=== PATIENT | female | born 1955 | race Two or more races ===

== ENCOUNTER 2016-05-06 20:50 | Inpatient (IN) | payer OTHER ==
[~2016-05-06 20:50] MED LIST: "\\\"BP MED\\\""; HYDR1TAB4 PO; INSU3INS6 SUBCUT; LORA1TAB82 PO
[2016-05-06] MEDS ORDERED: IV NS 0.9% 1,000 ML ONE (22:16)
[2016-05-06] MEDS ORDERED: IV SET PRIMARY 1 EA INFUS.SET MC ONE (22:16)
[2016-05-06] MEDS ORDERED: ACETAMINOPHEN ES 500 MG TABLET ONE (22:16)
[2016-05-06] MEDS ORDERED: LORAZEPAM 1 MG TABLET ONE (22:16)
[2016-05-06] MEDS ORDERED: LORAZEPAM 1 MG TABLET PO ONE (22:30)
[2016-05-06] MEDS ORDERED: ACETAMINOPHEN ES 500 MG TABLET PO ONE (22:30)
[2016-05-06] MEDS ORDERED: IV NS 0.9% 1,000 ML BAG IV ONE (22:30)
[2016-05-06] MEDS ORDERED: CIPROFLOXACIN IV RTU 200 ML IV ONE (23:57)
[2016-05-06] MEDS ORDERED: IV SET PRIMARY PUMP SET 1 EA INFUS.SET MC ONE (23:57)
[2016-05-07] MEDS ORDERED: ONDANSETRON HCL/PF 4 MG/2 ML VIAL ONE (00:05)
[2016-05-07] MEDS ORDERED: MORPHINE SULFATE INJ 4 MG/ML DISP.SYRIN ONE ×2 (00:05→03:10)
[2016-05-07] MEDS ORDERED: ONDANSETRON HCL/PF 4 MG/2 ML VIAL IV ONE (00:30)
[2016-05-07] MEDS ORDERED: MORPHINE SULFATE INJ 2 MG/ML DISP.SYRIN IV ONE (00:30)
[2016-05-07] MEDS ORDERED: METRONIDAZOLE 500MG/ NS 100ML 500 MG in PREMIX 1 EA IV SCH (02:00)
[2016-05-07] MEDS ORDERED: CIPROFLOXACIN IV RTU 400 MG in PREMIX 1 EA IV SCH ×3 (02:00)
[2016-05-07] MEDS ORDERED: IV NS 0.9% 1,000 ML BAG IV ONE (02:30)
[2016-05-07] MEDS ORDERED: ONDANSETRON HCL/PF 4 MG/2 ML VIAL IVP PRN (02:30)
[2016-05-07] MEDS ORDERED: DEXTROSE 50%-WATER 50 ML DISP.SYRIN IV PRN (02:30)
[2016-05-07] MEDS ORDERED: ACETAMINOPHEN 325 MG TABLET PO PRN (02:30)
[2016-05-07] MEDS ORDERED: MISCELLANEOUS MED 1 EA EA XX ONE ×2 (03:30)
[2016-05-07] MEDS ORDERED: MORPHINE SULFATE INJ 2 MG/ML DISP.SYRIN ONE (04:45)
[2016-05-07] MEDS ORDERED: METRONIDAZOLE 500MG/ NS 100ML 100 ML IV ONE (05:01)
[2016-05-07] MEDS: MORPHINE SULFATE INJ 2 MG/ML DISP.SYRIN IV PRN ×2 (05:09→22:45)
[2016-05-07] MEDS ORDERED: IV SET PRIMARY PUMP SET 1 EA INFUS.SET MC ONE (05:32)
[2016-05-07] MEDS ORDERED: IV NS 0.9% 250 ML IV ONE (05:32)
[2016-05-07] MEDS ORDERED: SECONDARY IV SET 1 EA INFUS.SET MC ONE ×4 (05:32→22:45)
[2016-05-07] MEDS ORDERED: IV NS 0.9% 1,000 ML ONE (05:40)
[2016-05-07] MEDS: METRONIDAZOLE 500MG/ NS 100ML 100 ML IV SCH ×3 (05:54→22:45)
[2016-05-07] MEDS: BLOOD SUGAR DIAGNOSTIC 1 EACH STRIP IN SCH ×4 (06:36→23:39)
[2016-05-07] MEDS: PANTOPRAZOLE 40 MG VIAL IV SCH (10:09)
[2016-05-07] MEDS: LEVOFLOXACIN 750 MG /D5W 150ML 150 ML IV SCH (10:09)
[2016-05-07] MEDS ORDERED: Z GUARD REMEDY 2 OZ OINT TP PRN (11:00)
[2016-05-07] MEDS ORDERED: HYDROGEL DRESSING 90 GM TUBE TP PRN (13:00)
[2016-05-07] MEDS: Z GUARD REMEDY 2 OZ OINT TP SCH (13:33)
[2016-05-07] MEDS: HYDROGEL DRESSING 90 GM TUBE TP SCH (13:34)
[2016-05-07] MEDS: INSULIN DETEMIR 100 UNIT/ML CARTRIDGE SQ SCH (22:00)
[2016-05-08] MEDS: MORPHINE SULFATE INJ 2 MG/ML DISP.SYRIN IV PRN ×5 (03:21→21:11)
[2016-05-08] MEDS: METRONIDAZOLE 500MG/ NS 100ML 100 ML IV SCH ×2 (05:47→13:58)
[2016-05-08] MEDS: BLOOD SUGAR DIAGNOSTIC 1 EACH STRIP IN SCH ×3 (06:41→17:52)
[2016-05-08] MEDS: LEVOFLOXACIN 750 MG /D5W 150ML 150 ML IV SCH (09:09)
[2016-05-08] MEDS: PANTOPRAZOLE 40 MG VIAL IV SCH ×2 (09:10→21:00)
[2016-05-08] MEDS: Z GUARD REMEDY 2 OZ OINT TP SCH (09:10)
[2016-05-08] MEDS: HYDROGEL DRESSING 90 GM TUBE TP SCH (09:12)
[2016-05-08] MEDS: INSULIN REGULAR, HUMAN 100 UNIT/ML 3 ML VIAL SQ PRN (13:44)
[2016-05-08] MEDS ORDERED: METF500T4 PO (16:23)
[2016-05-08] MEDS ORDERED: SPIR25TA4 PO (16:23)
[2016-05-08] MEDS ORDERED: DIPH25CA6 PO (16:23)
[2016-05-08] MEDS ORDERED: ALPR1TAB2 PO (16:23)
[2016-05-08] MEDS ORDERED: OXYC15TA2 PO (16:23)
[2016-05-08] MEDS ORDERED: ALPR0.5T PO (16:23)
[2016-05-08] MEDS ORDERED: GLIP5TAB13 PO (16:23)
[2016-05-08] MEDS ORDERED: POTA8TAB3 PO (16:23)
[2016-05-08] MEDS ORDERED: FEE PK DOSING 1 MIN EA MC ONE (18:58)
[2016-05-08] MEDS ORDERED: SECONDARY IV SET 1 EA INFUS.SET MC ONE (21:07)
[2016-05-08] MEDS: VANCOMYCIN 1.25 GM in IV D5W 500 ML IV SCH (21:12)
[2016-05-08] MEDS: DAKINS QUARTER STRENGTH (0.125%) 480 ML BOTTLE TOP SCH (21:16)
[2016-05-08] MEDS ORDERED: LORAZEPAM INJ 2 MG/ML VIAL ONE (23:33)
[2016-05-08] MEDS: MEROPENEM 500 MG in IV NS 0.9% 50 ML IV SCH (23:37)
[2016-05-08] MEDS: LORAZEPAM INJ 2 MG/ML VIAL IV PRN (23:37)
[2016-05-08] MEDS: INSULIN DETEMIR 100 UNIT/ML CARTRIDGE SQ SCH (23:49)
[2016-05-09] MEDS: BLOOD SUGAR DIAGNOSTIC 1 EACH STRIP IN SCH ×5 (00:09→23:48)
[2016-05-09] MEDS: METRONIDAZOLE 500MG/ NS 100ML 100 ML IV SCH ×4 (01:41→20:14)
[2016-05-09] MEDS: MORPHINE SULFATE INJ 2 MG/ML DISP.SYRIN IV PRN ×3 (05:12→17:54)
[2016-05-09] MEDS: MEROPENEM 500 MG in IV NS 0.9% 50 ML IV SCH ×3 (07:30→21:41)
[2016-05-09] MEDS: DAKINS QUARTER STRENGTH (0.125%) 480 ML BOTTLE TOP SCH (08:33)
[2016-05-09] MEDS: PANTOPRAZOLE 40 MG VIAL IV SCH ×2 (08:33→21:41)
[2016-05-09] MEDS: Z GUARD REMEDY 2 OZ OINT TP SCH (08:34)
[2016-05-09] MEDS: HYDROGEL DRESSING 90 GM TUBE TP SCH (08:34)
[2016-05-09] MEDS: LORAZEPAM INJ 2 MG/ML VIAL IV PRN ×2 (08:44→20:14)
[2016-05-09] MEDS ORDERED: SET RED CAP 1 EA INFUS.SET MC ONE (08:52)
[2016-05-09] MEDS ORDERED: SECONDARY IV SET 1 EA INFUS.SET MC ONE ×3 (08:52→20:28)
[2016-05-09] MEDS ORDERED: IV SET PRIMARY PUMP SET 1 EA INFUS.SET MC ONE (14:03)
[2016-05-09] MEDS: VANCOMYCIN 1.25 GM in IV D5W 500 ML IV SCH (14:10)
[2016-05-09] MEDS: SOD FERRIC GLUC 125 MG in IV NS 0.9% 100 ML IV SCH (14:33)
[2016-05-09] MEDS: INSULIN DETEMIR 100 UNIT/ML CARTRIDGE SQ SCH (22:00)
[2016-05-09] MEDS ORDERED: oxyCODONE HCL SR 10MG TAB.SR.12H PO PRN (23:30)
[2016-05-09] MEDS: INSULIN REGULAR, HUMAN 100 UNIT/ML 3 ML VIAL SQ PRN (23:54)
[2016-05-10] MEDS: MORPHINE SULFATE INJ 2 MG/ML DISP.SYRIN IV PRN ×4 (00:58→21:54)
[2016-05-10] MEDS: MEROPENEM 500 MG in IV NS 0.9% 50 ML IV SCH ×3 (04:58→19:57)
[2016-05-10] MEDS: METRONIDAZOLE 500MG/ NS 100ML 100 ML IV SCH ×3 (05:32→21:17)
[2016-05-10] MEDS: BLOOD SUGAR DIAGNOSTIC 1 EACH STRIP IN SCH ×4 (05:32→22:08)
[2016-05-10] MEDS: PHENYLEPHRINE/SHARK LIVER 1 EA SUPP.RECT RC SCH ×2 (05:48→17:24)
[2016-05-10] MEDS: INSULIN REGULAR, HUMAN 100 UNIT/ML 3 ML VIAL SQ PRN (06:06)
[2016-05-10] MEDS: Z GUARD REMEDY 2 OZ OINT TP SCH (08:40)
[2016-05-10] MEDS: PANTOPRAZOLE 40 MG VIAL IV SCH ×2 (08:42→21:17)
[2016-05-10] MEDS: VANCOMYCIN 1.25 GM in IV D5W 500 ML IV SCH (08:44)
[2016-05-10] MEDS: DAKINS QUARTER STRENGTH (0.125%) 480 ML BOTTLE TOP SCH (08:54)
[2016-05-10] MEDS: HYDROGEL DRESSING 90 GM TUBE TP SCH (08:54)
[2016-05-10] MEDS: oxyCODONE IR immediate release 5 MG CAPSULE PO PRN (09:33)
[2016-05-10] MEDS: LORAZEPAM INJ 2 MG/ML VIAL IV PRN (12:20)
[2016-05-10] MEDS: SOD FERRIC GLUC 125 MG in IV NS 0.9% 100 ML IV SCH (15:12)
[2016-05-10] MEDS: INSULIN DETEMIR 100 UNIT/ML CARTRIDGE SQ SCH (22:00)
[2016-05-11] MEDS: VANCOMYCIN 1.25 GM in IV D5W 500 ML IV SCH ×2 (02:06→20:40)
[2016-05-11] MEDS: MEROPENEM 500 MG in IV NS 0.9% 50 ML IV SCH ×3 (05:42→20:41)
[2016-05-11] MEDS: MORPHINE SULFATE INJ 2 MG/ML DISP.SYRIN IV PRN ×2 (05:42→21:24)
[2016-05-11] MEDS: METRONIDAZOLE 500MG/ NS 100ML 100 ML IV SCH ×3 (05:50→20:40)
[2016-05-11] MEDS: BLOOD SUGAR DIAGNOSTIC 1 EACH STRIP IN SCH ×4 (06:29→23:13)
[2016-05-11] MEDS: PHENYLEPHRINE/SHARK LIVER 1 EA SUPP.RECT RC SCH ×2 (08:01→17:00)
[2016-05-11] MEDS: PANTOPRAZOLE 40 MG VIAL IV SCH ×2 (08:01→20:42)
[2016-05-11] MEDS: Z GUARD REMEDY 2 OZ OINT TP SCH (08:06)
[2016-05-11] MEDS: DAKINS QUARTER STRENGTH (0.125%) 480 ML BOTTLE TOP SCH (08:06)
[2016-05-11] MEDS: HYDROGEL DRESSING 90 GM TUBE TP SCH (09:07)
[2016-05-11] MEDS: LORAZEPAM INJ 2 MG/ML VIAL IV PRN ×2 (10:12→22:50)
[2016-05-11] MEDS: SOD FERRIC GLUC 125 MG in IV NS 0.9% 100 ML IV SCH (14:46)
[2016-05-11] MEDS: oxyCODONE IR immediate release 5 MG CAPSULE PO PRN ×2 (14:46→23:08)
[2016-05-11] MEDS: INSULIN REGULAR, HUMAN 100 UNIT/ML 3 ML VIAL SQ PRN (17:51)
[2016-05-11] MEDS: INSULIN DETEMIR 100 UNIT/ML CARTRIDGE SQ SCH (21:00)
[2016-05-12] MEDS: MORPHINE SULFATE INJ 2 MG/ML DISP.SYRIN IV PRN ×4 (02:17→20:29)
[2016-05-12] MEDS: MEROPENEM 500 MG in IV NS 0.9% 50 ML IV SCH ×2 (04:33→13:34)
[2016-05-12] MEDS: METRONIDAZOLE 500MG/ NS 100ML 100 ML IV SCH ×3 (04:36→20:28)
[2016-05-12] MEDS: LORAZEPAM INJ 2 MG/ML VIAL IV PRN ×3 (04:36→17:13)
[2016-05-12] MEDS: BLOOD SUGAR DIAGNOSTIC 1 EACH STRIP IN SCH ×4 (06:00→23:14)
[2016-05-12] MEDS: PHENYLEPHRINE/SHARK LIVER 1 EA SUPP.RECT RC SCH ×2 (07:12→17:15)
[2016-05-12] MEDS: PANTOPRAZOLE 40 MG VIAL IV SCH ×2 (08:40→20:28)
[2016-05-12] MEDS: Z GUARD REMEDY 2 OZ OINT TP SCH (08:53)
[2016-05-12] MEDS: HYDROGEL DRESSING 90 GM TUBE TP SCH (08:53)
[2016-05-12] MEDS: DAKINS QUARTER STRENGTH (0.125%) 480 ML BOTTLE TOP SCH (08:53)
[2016-05-12] MEDS: oxyCODONE IR immediate release 5 MG CAPSULE PO PRN (12:21)
[2016-05-12] MEDS: SOD FERRIC GLUC 125 MG in IV NS 0.9% 100 ML IV SCH (14:07)
[2016-05-12] MEDS: VANCOMYCIN 1.25 GM in IV D5W 500 ML IV SCH (14:13)
[2016-05-12] MEDS ORDERED: SECONDARY IV SET 1 EA INFUS.SET MC ONE (14:48)
[2016-05-12] MEDS: FLUCONAZOLE (100 MG) 100 MG TABLET PO SCH (20:28)
[2016-05-12] MEDS: LEVOFLOXACIN (500MG) 500 MG TABLET PO SCH (20:28)
[2016-05-12] MEDS: INSULIN DETEMIR 100 UNIT/ML CARTRIDGE SQ SCH (22:00)
[2016-05-13] MEDS: LORAZEPAM INJ 2 MG/ML VIAL IV PRN ×2 (00:25→20:29)
[2016-05-13] MEDS: MORPHINE SULFATE INJ 2 MG/ML DISP.SYRIN IV PRN ×5 (01:47→21:46)
[2016-05-13] MEDS: METRONIDAZOLE 500MG/ NS 100ML 100 ML IV SCH (04:14)
[2016-05-13] MEDS: BLOOD SUGAR DIAGNOSTIC 1 EACH STRIP IN SCH ×3 (05:33→18:21)
[2016-05-13] MEDS: PHENYLEPHRINE/SHARK LIVER 1 EA SUPP.RECT RC SCH ×2 (06:37→17:00)
[2016-05-13] MEDS: VANCOMYCIN 1.25 GM in IV D5W 500 ML IV SCH (08:05)
[2016-05-13] MEDS: PANTOPRAZOLE 40 MG VIAL IV SCH ×2 (08:05→21:41)
[2016-05-13] MEDS: FLUCONAZOLE (100 MG) 100 MG TABLET PO SCH (08:05)
[2016-05-13] MEDS: HYDROGEL DRESSING 90 GM TUBE TP SCH (08:06)
[2016-05-13] MEDS: DAKINS QUARTER STRENGTH (0.125%) 480 ML BOTTLE TOP SCH (08:06)
[2016-05-13] MEDS: Z GUARD REMEDY 2 OZ OINT TP SCH (08:06)
[2016-05-13] MEDS: METRONIDAZOLE 500 MG TABLET PO SCH ×2 (12:38→21:41)
[2016-05-13] MEDS: SOD FERRIC GLUC 125 MG in IV NS 0.9% 100 ML IV SCH (14:55)
[2016-05-13] MEDS ORDERED: IV SET PRIMARY PUMP SET 1 EA INFUS.SET MC ONE (14:56)
[2016-05-13] MEDS ORDERED: SECONDARY IV SET 1 EA INFUS.SET MC ONE (14:57)
[2016-05-13] MEDS: INSULIN REGULAR, HUMAN 100 UNIT/ML 3 ML VIAL SQ PRN (18:16)
[2016-05-13] MEDS: LEVOFLOXACIN (500MG) 500 MG TABLET PO SCH (20:26)
[2016-05-13] MEDS: INSULIN DETEMIR 100 UNIT/ML CARTRIDGE SQ SCH (21:42)
[2016-05-14] MEDS: oxyCODONE IR immediate release 5 MG CAPSULE PO PRN ×2 (00:33→18:35)
[2016-05-14] MEDS: BLOOD SUGAR DIAGNOSTIC 1 EACH STRIP IN SCH ×4 (00:47→18:35)
[2016-05-14] MEDS: VANCOMYCIN 1.25 GM in IV D5W 500 ML IV SCH (02:40)
[2016-05-14] MEDS: LORAZEPAM INJ 2 MG/ML VIAL IV PRN ×2 (03:16→09:40)
[2016-05-14] MEDS: MORPHINE SULFATE INJ 2 MG/ML DISP.SYRIN IV PRN ×2 (05:19→15:32)
[2016-05-14] MEDS: METRONIDAZOLE 500 MG TABLET PO SCH ×2 (05:24→14:23)
[2016-05-14] MEDS: PHENYLEPHRINE/SHARK LIVER 1 EA SUPP.RECT RC SCH ×2 (07:00→17:00)
[2016-05-14] MEDS: Z GUARD REMEDY 2 OZ OINT TP SCH (09:00)
[2016-05-14] MEDS: HYDROGEL DRESSING 90 GM TUBE TP SCH (09:00)
[2016-05-14] MEDS: DAKINS QUARTER STRENGTH (0.125%) 480 ML BOTTLE TOP SCH (09:00)
[2016-05-14] MEDS: FLUCONAZOLE (100 MG) 100 MG TABLET PO SCH (09:28)
[2016-05-14] MEDS: PANTOPRAZOLE 40 MG VIAL IV SCH (09:28)
[2016-05-14] MEDS ORDERED: DOCUSATE SODIUM 250 MG CAPSULE PO SCH (13:30)
[2016-05-14] MEDS ORDERED: MAGNESIUM HYDROXIDE 30 ML UDC PO PRN (13:30)
[2016-05-14] MEDS: INSULIN REGULAR, HUMAN 100 UNIT/ML 3 ML VIAL SQ PRN (14:48)
[2016-05-14] MEDS ORDERED: METR500T PO (15:14)
[2016-05-14] MEDS ORDERED: LEVO500T15 PO (15:14)
[2016-05-14] MEDS ORDERED: Fluconazole PO (15:14)
[2016-05-14] MEDS ORDERED: HYDR-552 PO (15:14)
== END 2016-05-14 18:00 | disposition home or self-care (01) | DRG 244 ==
DX: K57.92 Diverticulitis of intestine, part unspecified, without perforation or abscess without bleeding (principal); M72.6 Necrotizing fasciitis; E43 Unspecified severe protein-calorie malnutrition; J90 Pleural effusion, not elsewhere classified; E11.52 Type 2 diabetes mellitus with diabetic peripheral angiopathy with gangrene; K76.6 Portal hypertension; D69.6 Thrombocytopenia, unspecified; E66.01 Morbid (severe) obesity due to excess calories; E11.9 Type 2 diabetes mellitus without complications; D50.9 Iron deficiency anemia, unspecified; N39.0 Urinary tract infection, site not specified; I10 Essential (primary) hypertension; K74.60 Unspecified cirrhosis of liver; K80.20 Calculus of gallbladder without cholecystitis without obstruction; G89.29 Other chronic pain; N20.0 Calculus of kidney; M19.90 Unspecified osteoarthritis, unspecified site; F41.9 Anxiety disorder, unspecified; B95.2 Enterococcus as the cause of diseases classified elsewhere; K59.00 Constipation, unspecified; I34.0 Nonrheumatic mitral (valve) insufficiency; E88.09 Other disorders of plasma-protein metabolism, not elsewhere classified; F39 Unspecified mood [affective] disorder; I25.10 Atherosclerotic heart disease of native coronary artery without angina pectoris; N39.41 Urge incontinence; Z87.442 Personal history of urinary calculi; Z68.44 Body mass index [BMI] 60.0-69.9, adult